=== PATIENT | female | born 1960 | race Caucasian/White ===

== ENCOUNTER 2017-08-19 09:42 | Day surgery (SDC) | payer BC ==
[2017-08-19] MEDS ORDERED: D5 LR 1000 ML 1,000 ML IV ONE (09:54)
[2017-08-19 12:32] VITALS: BP 135/66
[2017-08-19] MEDS ORDERED: DIPRIVAN VIAL ONE (15:18)
== END 2017-08-19 12:35 | disposition home or self-care (01) ==
LOC: SURG1 09:42
PROVIDERS: ATTEND Internal Medicine Gastroenterology
PROC: 0DJD8ZZ Inspection of Lower Intestinal Tract, Via Natural or Artificial Opening Endoscopic (ICD-10-PCS; principal; 2017-08-19 10:45)
DX: K92.1 Melena (principal); R10.31 Right lower quadrant pain; R10.32 Left lower quadrant pain; K59.09 Other constipation; R19.7 Diarrhea, unspecified; K64.0 First degree hemorrhoids
CPT/HCPCS: A4217; J3490; J7120